=== PATIENT | female | born 1960 | race Caucasian/White ===

== ENCOUNTER 2020-03-20 12:59 | Outpatient (CLI) | payer OTHER ==
--- NOTE | 2020-03-20 13:53 | MRI ---
EXAM: MRI Lumbar Spine WO Con PROVIDED CLINICAL HISTORY: Lumbar radiculopathy COMPARISON: 11/09/2012 FINDINGS: 5 lumbar vertebral bodies are assumed. Lumbar alignment appears normal. Vertebral body heights appear preserved. No focal concerning regional marrow signal abnormality is evident. The conus medullaris is normal in signal and terminates at an appropriate level. L1-L2: No significant central canal or foraminal narrowing apparent. L2-L3: No significant central canal or foraminal narrowing apparent. L3-L4: Bilateral facet arthritis. No significant central canal or foraminal narrowing apparent. L4-L5: Disc desiccation and loss of disc space height with mild broad disc bulge. Bilateral facet arthritis. Mild central canal stenosis. Moderate left subarticular narrowing. Moderate bilateral foraminal narrowing. L5-S1: Broad-based disc bulge and bilateral facet arthritis. Mild bilateral foraminal narrowing. No signific ant central canal stenosis apparent. IMPRESSION: Lumbar disc and facet degenerative changes as described above, appearing similar to prior.
== END 2020-03-20 13:00 | disposition home or self-care (01) ==
LOC: TBSIIMAG 12:59
PROVIDERS: ATTEND Emergency Medicine Sports Medicine
DX: M47.26 Other spondylosis with radiculopathy, lumbar region (principal); M16.12 Unilateral primary osteoarthritis, left hip; M25.552 Pain in left hip; M51.16 Intervertebral disc disorders with radiculopathy, lumbar region; M47.817 Spondylosis without myelopathy or radiculopathy, lumbosacral region
CPT/HCPCS: 72148

== ENCOUNTER 2020-04-24 06:06 | Day surgery (SDC) | payer OTHER ==
[2020-04-23 10:42] VITALS: BMI 40.3
[2020-04-24] MEDS ORDERED: Ketamine 50 MG/ML (10ML VIAL) ONE (06:50)
[2020-04-24] MEDS ORDERED: Midazolam HCl 2 mg/2 ml Vial ONE (07:01)
[2020-04-24] MEDS ORDERED: Fentanyl 100 MCG/2 ML VIAL ONE ×2 (07:11→09:18)
[2020-04-24] MEDS ORDERED: SUGAMMADEX SODIUM 200 MG/2 ML VIAL ONE (08:37)
[2020-04-24] MEDS ORDERED: HYDROmorphone 2 MG/ML VIAL ONE (08:44)
[2020-04-24] MEDS ORDERED: Rocuronium Bromide 10 MG/ML (10ML VIAL) ONE (09:00)
[2020-04-24] MEDS ORDERED: Ondansetron PF 4 MG/2 ML Vial ONE (09:00)
[2020-04-24] MEDS ORDERED: Ketorolac Tromethamine 30 MG/ML VIAL ONE (09:00)
[2020-04-24] MEDS ORDERED: PROPOFOL 200 MG/20 ML VIAL ONE (09:00)
[2020-04-24] MEDS ORDERED: PHENYLEPHRINE-NS 100 MCG/ML 10 ML SYRINGE ONE (09:00)
[2020-04-24] MEDS ORDERED: Lidocaine 1% PF 5 ML VIAL ONE (09:00)
[2020-04-24] MEDS ORDERED: Dexamethasone 20 MG/5 ML VIAL ONE (09:00)
[2020-04-24] MEDS ORDERED: Promethazine HCl 25 MG/ML VIAL ONE (09:36)
--- NOTE | 2020-04-24 09:46 | OP ---
DATE OF PROCEDURE: 04/24/2020 GRIPS: Lynette Nava PA-C. PROCEDURE PERFORMED: Left L4-L5 laminectomy, facetectomy, foraminotomy, and diskectomy; interbody arthrodesis, intervertebral biomechanical device, local morselized autograft, demineralized bone matrix, posterolateral arthrodesis, pedicle screw instrumentation, L4-L5. DESCRIPTION OF PROCEDURE: The patient was brought to the operating room and intubated. She was rolled in a prone position on gel-filled chest rolls. An incision was made exposing L4-L5 and the level was confirmed by x-ray. We identified the previous L4-L5 hemilaminectomy and extended this by performing a complete laminectomy and facetectomy at L4-L5. The neural elements were completely decompressed. The disk was incised and debrided and the bony endplates decorticated for the purpose of arthrodesis. An appropriate-sized intervertebral biomechanical PEEK device was brought into the field. It was filled with demineralized bone matrix, local morselized autograft, and tapped in place securely at L4-L5. Next, pedicle screws were placed at left L4 and left L5 using lateral fluoroscopic guidance and the positioning was confirmed by x-ray. The gabino was secured between the screws, connected by nuts, which were final tightened. The wound was then extensively irrigated and MAC hemostasis was secured. A combination of demineralized bone matrix, local morselized autograft was laid over the lamina and posterolateral surfaces for the purpose of arthrodesis. Vancomycin powder was applied and the wound was then closed in anatomic layers. Job ID: [id number]
[2020-04-24] MEDS ORDERED: HYDROcodone/Acetaminophen 5/325 mg Tablet ONE (13:41)
[2020-04-24] MEDS ORDERED: tiZANidine HCl 4 MG TAB ONE (14:12)
== END 2020-04-24 15:27 | disposition home or self-care (01) ==
LOC: SDC 06:06
PROVIDERS: ATTEND Neurological Surgery
PROC: 0SG00AJ Fusion of Lumbar Vertebral Joint with Interbody Fusion Device, Posterior Approach, Anterior Column, Open Approach (ICD-10-PCS; principal; 2020-04-24)
PROC: 0ST20ZZ Resection of Lumbar Vertebral Disc, Open Approach (ICD-10-PCS; principal; 2020-04-24)
DX: M43.16 Spondylolisthesis, lumbar region (principal); M54.16 Radiculopathy, lumbar region; M48.061 Spinal stenosis, lumbar region without neurogenic claudication; I10 Essential (primary) hypertension; F41.9 Anxiety disorder, unspecified; Z79.899 Other long term (current) drug therapy; Z88.1 Allergy status to other antibiotic agents; Z88.5 Allergy status to narcotic agent
CPT/HCPCS: 76000; C1713; C1768; J0690; J1100; J1170; J1885; J2250; J2405; J2550; J2704; J3010; J3370; J3490

== ENCOUNTER 2020-05-09 08:58 | Outpatient (CLI) | payer OTHER ==
--- NOTE | 2020-05-09 09:20 | RAD ---
Lumbar spine 2 views: 05/09/2020 COMPARISON: 11/09/2012 HISTORY: Spondylolisthesis, prior lumbar spine surgery, persistent left leg pain FINDINGS: 5 lumbar type vertebral bodies are present. The lateral examination demonstrates anterolist hesis at the L4-5 level measuring 9 mm, progressed when compared to the 11/09/2012 study. There is an intervertebral disc device at L4-5. Left L4 and L5 pedicle screws have been placed with a vertical ly oriented interlocking gabino. No evidence for hardware failure. There is disc space narrowing with lateral osteophyte formation at L4-5. Disc spacing at the L5-S1 le dung noted. No acute osseous abnormality. IMPRESSION: Postoperative and degenerative change of the lumbar spine as above.
== END 2020-05-09 08:59 | disposition home or self-care (01) ==
LOC: TBSIIMAG 08:58
PROVIDERS: ATTEND Neurological Surgery
DX: M43.16 Spondylolisthesis, lumbar region (principal); M47.816 Spondylosis without myelopathy or radiculopathy, lumbar region; Z98.890 Other specified postprocedural states
CPT/HCPCS: 72100

== ENCOUNTER 2021-11-06 13:36 | Outpatient (CLI) | payer OTHER ==
[2021-11-06 16:30] LABS: #Basophils 0.1 10x3/uL (0.0-0.2); #Eosinphils 0.3 10x3/uL (0.0-0.5); #Monocytes 0.6 10x3/uL (0.0-1.1); #Neutrophils 6.4 10x3/uL (1.5-8.4); %Basophils 0.6 % (0.0-2.0); %Eosinophils 2.6 % (0.0-6.0); %Lymphocytes 22.2 % (18.0-47.0); %Monocytes 6.2 % (0.0-10.0); %Neutrophils 67.9 % (40.0-75.0); Hemoglobin 12.2 g/dL (12.0-15.5); Mean Corpuscular HGB CONC 31.8 g/dL (32.0-36.0); Mean Corpuscular Hemoglobin 27.4 pg (27.0-33.0); Mean Corpuscular Volume 86.3 fl (81.6-98.3); Mean Platelet Volume 10.8 fl (7.4-10.4); Platelet Count 277 10x3/uL (150-450); RBC Distribution Width 15.6 % (11.5-14.5); Red Blood Cell (RBC) Count 4.45 10x6/uL (3.90-5.03); White Blood Cell (WBC) Count 9.5 10x3/uL (3.5-10.5)
[2021-11-06 17:08] LABS: Anion Gap 17 mmol/L (10-20); BUN (Urea Nitrogen) 30 mg/dL (9.8-20.1); Calc. Creatinine Clearance 0 mL/min (70-130); Calcium 10.4 mg/dL (7.8-10.44); Carbon Dioxide 27 mmol/L (23-31); Chloride 101 mmol/L (98-107); Estimated GFR 63; Glucose 117 mg/dL (80-115); Potassium 3.9 mmol/L (3.5-5.1); Sodium 141 mmol/L (136-145)
== END 2021-11-06 13:37 | disposition home or self-care (01) ==
LOC: LABBT 13:36
PROVIDERS: ATTEND Orthopaedic Surgery Hand Surgery
DX: Z01.818 Encounter for other preprocedural examination (principal); Z20.822 Contact with and (suspected) exposure to COVID-19
CPT/HCPCS: 80048; 85025; 87811; 93005; 93010

== ENCOUNTER 2021-11-11 05:36 | Day surgery (SDC) | payer OTHER ==
[2021-11-07 12:37] VITALS: BMI 38.4
[2021-11-11] MEDS ORDERED: Bacitracin Zinc Ointment 30 gm TUBE ONE (06:11)
[2021-11-11] MEDS ORDERED: Bupivacaine PF 0.5% 30 ML VIAL ONE (06:11)
[2021-11-11] MEDS ORDERED: Betamet Acet/Betamet Na Ph 30 MG/5 ML VIAL ONE (06:11)
[2021-11-11] MEDS ORDERED: Neomycin-Polymyxin 1 ML AMP ONE (06:11)
[2021-11-11] MEDS ORDERED: fentaNYL Citrate/PF 100 MCG/2 ML SYRINGE ONE ×2 (07:01→11:16)
[2021-11-11] MEDS ORDERED: Sodium Chloride 0.9% 100 ML ONE (07:04)
[2021-11-11] MEDS ORDERED: CEFAZOLIN 2 GM VIAL ONE (07:04)
[2021-11-11] MEDS ORDERED: ePHEDrine 50 MG/ML VIAL ONE (07:24)
[2021-11-11] MEDS ORDERED: Ketorolac Tromethamine 30 MG/ML VIAL ONE (07:24)
[2021-11-11] MEDS ORDERED: Ondansetron PF 4 MG/2 ML Vial ONE ×2 (07:24→11:06)
[2021-11-11] MEDS ORDERED: PROPOFOL 200 MG/20 ML VIAL ONE (07:24)
[2021-11-11] MEDS ORDERED: Promethazine HCl 25 MG/ML VIAL ONE (11:08)
[2021-11-11] MEDS ORDERED: Scopolamine 1.5 mg/72 hour Patch ONE (11:14)
[2021-11-11] MEDS ORDERED: Metoclopramide HCl 10 MG/2 ML VIAL ONE (11:19)
== END 2021-11-11 13:50 | disposition home or self-care (01) ==
LOC: SDC 05:36
PROVIDERS: ATTEND Orthopaedic Surgery Hand Surgery
PROC: 0RRX0JZ Replacement of Left Finger Phalangeal Joint with Synthetic Substitute, Open Approach (ICD-10-PCS; principal; 2021-11-11)
PROC: 0LN80ZZ Release Left Hand Tendon, Open Approach (ICD-10-PCS; principal; 2021-11-11)
DX: M15.2 Bouchard's nodes (with arthropathy) (principal); M65.332 Trigger finger, left middle finger; M65.342 Trigger finger, left ring finger; M35.1 Other overlap syndromes; M65.321 Trigger finger, right index finger; M25.839 Other specified joint disorders, unspecified wrist; I10 Essential (primary) hypertension; J45.909 Unspecified asthma, uncomplicated; E11.9 Type 2 diabetes mellitus without complications; G89.29 Other chronic pain; M25.561 Pain in right knee; M25.562 Pain in left knee; Z86.16 Personal history of COVID-19; Z79.84 Long term (current) use of oral hypoglycemic drugs; Z79.899 Other long term (current) drug therapy; Z88.1 Allergy status to other antibiotic agents; Z88.5 Allergy status to narcotic agent; Z96.652 Presence of left artificial knee joint; Z98.1 Arthrodesis status
CPT/HCPCS: 36416; 76000; C1776; C1894; J0690; J0702; J1885; J2405; J2550; J2704; J2765; J3490; S0020

== ENCOUNTER 2021-11-24 14:30 | Day surgery (SDC) | payer OTHER ==
[2021-11-24] MEDS ORDERED: Neomycin-Polymyxin 1 ML AMP ONE (15:59)
[2021-11-24] MEDS ORDERED: Bupivacaine PF 0.5% 30 ML VIAL ONE (15:59)
[2021-11-24] MEDS ORDERED: Bacitracin Zinc Ointment 30 gm TUBE ONE (15:59)
[2021-11-24] MEDS ORDERED: Betamet Acet/Betamet Na Ph 30 MG/5 ML VIAL ONE (15:59)
[2021-11-24] MEDS ORDERED: fentaNYL Citrate/PF 100 MCG/2 ML SYRINGE ONE (16:07)
[2021-11-24] MEDS ORDERED: Levofloxacin 500 mg/D5W 100 ml Premix Bag ONE (16:14)
[2021-11-24] MEDS ORDERED: Clindamycin/D5W 900 mg/50 ml Premix Bag ONE (17:21)
[2021-11-24] MEDS ORDERED: ePHEDrine 50 MG/ML VIAL ONE (17:25)
[2021-11-24] MEDS ORDERED: Ondansetron PF 4 MG/2 ML Vial ONE (17:25)
[2021-11-24] MEDS ORDERED: PROPOFOL 200 MG/20 ML VIAL ONE (17:25)
[2021-11-24] MEDS ORDERED: Lidocaine 1% MPF 2 ML VIAL ONE (17:25)
[2021-11-24] MEDS ORDERED: Dexamethasone 20 MG/5 ML VIAL ONE (17:25)
[2021-11-24] MEDS ORDERED: Glycopyrrolate 0.2 MG/ML 5 ML SYRINGE ONE (17:25)
[2021-11-24] MEDS ORDERED: Ketorolac Tromethamine 30 MG/ML VIAL ONE (18:37)
== END 2021-11-24 19:40 | disposition home or self-care (01) ==
LOC: SDC 14:30
PROVIDERS: ATTEND Orthopaedic Surgery Hand Surgery
PROC: 0LB80ZZ Excision of Left Hand Tendon, Open Approach (ICD-10-PCS; principal; 2021-11-24)
DX: M65.842 Other synovitis and tenosynovitis, left hand (principal); Z88.1 Allergy status to other antibiotic agents; Z88.5 Allergy status to narcotic agent; Z98.890 Other specified postprocedural states
CPT/HCPCS: 88304; J0702; J1100; J1885; J1956; J2405; J2704; J3490; S0020

== ENCOUNTER 2022-02-24 10:11 | Day surgery (SDC) | payer OTHER ==
[2022-02-23 09:24] VITALS: BMI 40.3
[2022-02-24] MEDS ORDERED: Bupivacaine PF 0.5% 30 ML VIAL ONE (11:16)
[2022-02-24] MEDS ORDERED: Neomycin-Polymyxin 1 ML AMP ONE (11:16)
[2022-02-24] MEDS ORDERED: Bacitracin Zinc Ointment 30 gm TUBE ONE (11:16)
[2022-02-24] MEDS ORDERED: Scopolamine 1.5 mg/72 hour Patch ONE (11:36)
[2022-02-24] MEDS ORDERED: Sodium Chloride 0.9% 100 ML ONE (12:00)
[2022-02-24] MEDS ORDERED: CEFAZOLIN 2 GM VIAL ONE (12:00)
[2022-02-24] MEDS ORDERED: fentaNYL PF 100 MCG/2 ML SYRINGE ONE (12:02)
[2022-02-24] MEDS ORDERED: ePHEDrine 50 MG/ML VIAL ONE (12:17)
[2022-02-24] MEDS ORDERED: Ondansetron PF 4 MG/2 ML Vial ONE (12:17)
[2022-02-24] MEDS ORDERED: Dexamethasone 20 MG/5 ML VIAL ONE (12:17)
[2022-02-24] MEDS ORDERED: PROPOFOL 200 MG/20 ML VIAL ONE (12:17)
[2022-02-24] MEDS ORDERED: FENTANYL 50 MCG/ML 1 ML VIAL ONE ×4 (15:11→15:53)
[2022-02-24] MEDS ORDERED: Ketorolac Tromethamine 30 MG/ML VIAL ONE (15:30)
[2022-02-24] MEDS ORDERED: HYDROmorphone 0.5 MG/0.5 ML SYRINGE ONE ×3 (16:03→16:22)
[2022-02-24] MEDS ORDERED: Promethazine 25 MG TAB ONE (17:11)
== END 2022-02-24 17:25 | disposition home or self-care (01) ==
LOC: SDC 10:11
PROVIDERS: ATTEND Orthopaedic Surgery Hand Surgery
DX: M25.342 Other instability, left hand (principal); M24.642 Ankylosis, left hand; T84.098A Other mechanical complication of other internal joint prosthesis, initial encounter; M15.2 Bouchard's nodes (with arthropathy); M65.332 Trigger finger, left middle finger; M65.321 Trigger finger, right index finger; M25.839 Other specified joint disorders, unspecified wrist; I10 Essential (primary) hypertension; J45.909 Unspecified asthma, uncomplicated; G89.29 Other chronic pain; M25.561 Pain in right knee; M25.562 Pain in left knee; M25.541 Pain in joints of right hand; M25.542 Pain in joints of left hand; E11.9 Type 2 diabetes mellitus without complications; Z86.16 Personal history of COVID-19; Z79.84 Long term (current) use of oral hypoglycemic drugs; Z79.899 Other long term (current) drug therapy; Z88.1 Allergy status to other antibiotic agents; Z88.5 Allergy status to narcotic agent; Z96.652 Presence of left artificial knee joint; Z98.1 Arthrodesis status; Y79.3 Surgical instruments, materials and orthopedic devices (including sutures) associated with adverse incidents
CPT/HCPCS: C1776; C1894; J1170; J1885; J3010; J3490; Q0169; S0020

== ENCOUNTER 2022-10-13 14:35 | Emergency (ER) | payer OTHER ==
[2022-10-13] MEDS ORDERED: Orphenadrine Citrate 60 MG/2 ML VIAL ONE ×2 (15:56→16:32)
[2022-10-13] MEDS ORDERED: Ketorolac Tromethamine 30 MG/ML VIAL ONE ×2 (15:57→16:32)
== END 2022-10-13 17:26 | disposition home or self-care (01) ==
LOC: ERS 14:35
DX: S39.012A Strain of muscle, fascia and tendon of lower back, initial encounter (principal); S16.1XXA Strain of muscle, fascia and tendon at neck level, initial encounter; M25.512 Pain in left shoulder; M25.511 Pain in right shoulder; E11.9 Type 2 diabetes mellitus without complications; I10 Essential (primary) hypertension; F17.200 Nicotine dependence, unspecified, uncomplicated; Z79.84 Long term (current) use of oral hypoglycemic drugs; Z79.899 Other long term (current) drug therapy; V49.40XA Driver injured in collision with unspecified motor vehicles in traffic accident, initial encounter
CPT/HCPCS: 72125; 72128; 72131; 96372; J1885; J2360

== ENCOUNTER 2023-08-11 13:31 | Outpatient (CLI) | payer MEDICARE ==
[2023-08-11 15:27] LABS: #Basophils 0.04 10x3/uL (0.0-0.2); #Eosinphils 0.14 10x3/uL (0.0-0.5); #Monocytes 0.62 10x3/uL (0.0-1.1); #Neutrophils 7.15 10x3/uL (1.5-8.4); %Basophils 0.4 % (0.0-2.0); %Eosinophils 1.4 % (0.0-6.0); %Lymphocytes 19.6 % (18.0-47.0); %Monocytes 6.2 % (0.0-10.0); Hematocrit 38.2 % (34.9-44.5); Hemoglobin 12.4 g/dL (12.0-15.5); Mean Corpuscular HGB CONC 32.5 g/dL (32.0-36.0); Mean Corpuscular Hemoglobin 27.6 pg (27.0-33.0); Mean Corpuscular Volume 84.9 fl (81.6-98.3); Mean Platelet Volume 10.7 fl (7.4-10.4); Platelet Count 275 10x3/uL (150-450); White Blood Cell (WBC) Count 9.9 10x3/uL (3.5-10.5)
== END 2023-08-11 13:32 | disposition home or self-care (01) ==
LOC: LABBT 13:31
PROVIDERS: ATTEND Orthopaedic Surgery
DX: Z01.812 Encounter for preprocedural laboratory examination (principal); S46.011A Strain of muscle(s) and tendon(s) of the rotator cuff of right shoulder, initial encounter; M75.81 Other shoulder lesions, right shoulder
CPT/HCPCS: 85025

== ENCOUNTER 2023-08-19 05:19 | Day surgery (SDC) | payer MEDICARE ==
[2023-08-11 14:16] VITALS: BMI 37.8
[2023-08-19] MEDS ORDERED: Bupivacaine 0.25% HCL 30 ML VIAL ONE (06:25)
[2023-08-19] MEDS ORDERED: EPINEPHrine 1 MG/ML VIAL ONE (06:25)
[2023-08-19] MEDS ORDERED: Midazolam HCl 2 mg/2 ml Vial ONE (06:42)
[2023-08-19] MEDS ORDERED: Dexmedetomidine 200 MCG/2 ML VIAL ONE (06:42)
[2023-08-19] MEDS ORDERED: fentaNYL PF 100 MCG/2 ML SYRINGE ONE (06:43)
[2023-08-19] MEDS ORDERED: Sodium Chloride 0.9% 100 ML ONE (06:55)
[2023-08-19] MEDS ORDERED: CEFAZOLIN 2 GM VIAL ONE (06:55)
[2023-08-19] MEDS ORDERED: PROPOFOL 40 ML ONE (07:17)
[2023-08-19] MEDS ORDERED: Lidocaine 1% PF 5 ML VIAL ONE (07:25)
[2023-08-19] MEDS ORDERED: Dexamethasone 20 MG/5 ML VIAL ONE (07:25)
[2023-08-19] MEDS ORDERED: Ketorolac Tromethamine 30 MG (1 mL) VIAL ONE (07:25)
[2023-08-19] MEDS ORDERED: Rocuronium Bromide 10 MG/ML (10ML VIAL) ONE (07:25)
[2023-08-19] MEDS ORDERED: ePHEDrine Sulfate 50 MG/10 ML VIAL ONE (07:34)
[2023-08-19] MEDS ORDERED: Metoclopramide HCl 10 MG (2 mL) VIAL ONE (07:34)
[2023-08-19] MEDS ORDERED: Glycopyrrolate 0.2 MG/ML 5 ML SYRINGE ONE (07:46)
[2023-08-19] MEDS ORDERED: Ropivacaine 0.5% HCl/PF (150 MG/30 ML VIAL) ONE (07:48)
[2023-08-19] MEDS ORDERED: Ropivacaine 0.2% HCl/PF 20 ML ONE (07:48)
[2023-08-19] MEDS ORDERED: Zolpidem Tartrate 5 MG TAB PO PRN (08:00)
[2023-08-19] MEDS ORDERED: Ropivacaine 0.2% 550 ML 550 ML NERVE BLCK SCH (08:00)
[2023-08-19] MEDS ORDERED: Promethazine HCl 25 MG/ML VIAL IM PRN (08:00)
[2023-08-19] MEDS ORDERED: Ondansetron PF 4 MG/2 ML Vial IVP PRN (08:00)
[2023-08-19] MEDS ORDERED: SUGAMMADEX SODIUM 200 MG/2 ML VIAL ONE (08:36)
[2023-08-19] MEDS ORDERED: Ondansetron PF 4 MG/2 ML Vial ONE (08:38)
[2023-08-19] MEDS ORDERED: fentaNYL 50 mcg/mL 1 mL Vial ONE (10:26)
== END 2023-08-19 11:45 | disposition home or self-care (01) ==
LOC: SDC 05:19
PROVIDERS: ATTEND Orthopaedic Surgery
PROC: 0LS34ZZ Reposition Right Upper Arm Tendon, Percutaneous Endoscopic Approach (ICD-10-PCS; principal; 2023-08-19)
DX: S46.011A Strain of muscle(s) and tendon(s) of the rotator cuff of right shoulder, initial encounter (principal); M67.921 Unspecified disorder of synovium and tendon, right upper arm; I10 Essential (primary) hypertension; J45.909 Unspecified asthma, uncomplicated; M19.90 Unspecified osteoarthritis, unspecified site; D64.9 Anemia, unspecified; E11.9 Type 2 diabetes mellitus without complications; M75.21 Bicipital tendinitis, right shoulder; F41.9 Anxiety disorder, unspecified; Z98.890 Other specified postprocedural states; Z88.5 Allergy status to narcotic agent; Z88.8 Allergy status to other drugs, medicaments and biological substances; Z88.6 Allergy status to analgesic agent; Z79.4 Long term (current) use of insulin; Z79.899 Other long term (current) drug therapy
CPT/HCPCS: 29827; 64415; 82962; A4306; J0171; J0665; J2250; J2405; J2704; J2765; J2795 ×3; J3010; J3490; 36416; C1713; J1100; J1885

== ENCOUNTER 2024-01-18 14:22 | Outpatient (CLI) | payer MEDICARE ==
[2024-01-18 15:58] LABS: #Basophils 0.04 10x3/uL (0.0-0.2); %Basophils 0.5 % (0.0-1.0); %Eosinophils 2.2 % (0.0-10.0); %Lymphocytes 21.5 % (21.0-51.0); %Neutrophils 68.6 % (42.0-75.0); Hematocrit 41.3 % (36.0-47.0); Hemoglobin 13.3 g/dL (12.0-16.0); Mean Corpuscular HGB CONC 32.2 g/dL (32.0-36.0); Mean Corpuscular Hemoglobin 27.1 pg (27.0-31.0); Mean Corpuscular Volume 84.1 fL (78.0-98.0); Mean Platelet Volume 10.3 fL (7.4-10.4); Platelet Count 254 10x3/uL (130-400); RBC Distribution Width 16.1 % (11.5-14.5); Red Blood Cell (RBC) Count 4.91 mill/uL (4.20-5.40)
[2024-01-18 16:11] LABS: INR-International Normal Ratio 1.1; PTT 36.4 sec (22.9-36.1); Prothrombin Time 13.9 sec (12.0-14.7)
[2024-01-18 16:18] LABS: Anion Gap 14 mmol/L (10-20); BUN (Urea Nitrogen) 21 mg/dL (9.8-20.1); Calc. Creatinine Clearance 0 mL/min (70-130); Calcium 9.7 mg/dL (7.8-10.44); Carbon Dioxide 26 mmol/L (23-31); Chloride 106 mmol/L (98-107); Estimated GFR 72; Glucose 92 mg/dL (80-115); Potassium 3.3 mmol/L (3.5-5.1); Sodium 143 mmol/L (136-145)
== END 2024-01-18 14:23 | disposition home or self-care (01) ==
LOC: LABBT 14:22
PROVIDERS: ATTEND Orthopaedic Surgery
DX: Z01.818 Encounter for other preprocedural examination (principal); M17.11 Unilateral primary osteoarthritis, right knee; Z98.890 Other specified postprocedural states
CPT/HCPCS: 80048; 85025; 87081; 93005; 93010

== ENCOUNTER 2024-01-21 14:14 | Outpatient (CLI) | payer MEDICARE | END 2024-01-21 14:15 | disposition home or self-care (01) | LOC: CT 14:14 | PROVIDERS: ATTEND Orthopaedic Surgery | DX: M17.11 Unilateral primary osteoarthritis, right knee (principal) ==

== ENCOUNTER 2024-01-25 08:41 | Inpatient (IN) | payer MEDICARE ==
[2024-01-25] MEDS ORDERED: Sodium Chloride 0.9% 100 ML ONE (10:27)
[2024-01-25] MEDS ORDERED: Tranexamic Acid 1,000 MG/10 ML VIAL ONE (10:27)
[2024-01-25] MEDS ORDERED: Vancomycin (BATCH) 1.5 GM/300 ML BAG ONE (10:27)
[2024-01-25] MEDS ORDERED: Midazolam HCl 2 mg/2 ml Vial ONE (10:29)
[2024-01-25] MEDS ORDERED: fentaNYL 50 mcg/mL 1 mL Vial ONE ×4 (10:29→17:47)
[2024-01-25] MEDS ORDERED: Bupivacaine PF 0.5% 30 ML VIAL ONE (10:29)
[2024-01-25] MEDS ORDERED: Promethazine HCl 25 MG/ML VIAL IM PRN ×2 (12:00→17:00)
[2024-01-25] MEDS ORDERED: traMADol HCl 50 MG TAB PO PRN ×2 (12:00)
[2024-01-25] MEDS ORDERED: HYDROcodone/Acetaminophen 10/325 mg Tablet PO PRN ×2 (12:00)
[2024-01-25] MEDS ORDERED: Ropivacaine 0.2% 550 ML 550 ML NERVE BLCK SCH (12:00)
[2024-01-25] MEDS ORDERED: Zolpidem Tartrate 5 MG TAB PO PRN (12:00)
[2024-01-25] MEDS ORDERED: fentaNYL 50 mcg/mL 1 mL Vial SLOW IVP PRN (12:00)
[2024-01-25] MEDS ORDERED: Bupivacaine 0.25% HCL 30 ML VIAL ONE (12:10)
[2024-01-25] MEDS ORDERED: EPINEPHrine 1 MG/ML VIAL ONE (12:10)
[2024-01-25] MEDS ORDERED: Lidocaine 1% PF 5 ML VIAL ONE (12:15)
[2024-01-25] MEDS ORDERED: PROPOFOL 20 ML ONE (12:15)
[2024-01-25] MEDS ORDERED: Ondansetron PF 4 MG/2 ML Vial ONE (12:15)
[2024-01-25] MEDS ORDERED: fentaNYL PF 100 MCG/2 ML SYRINGE ONE (12:15)
[2024-01-25] MEDS ORDERED: CEFAZOLIN 2 GM VIAL ONE (12:23)
[2024-01-25] MEDS ORDERED: ePHEDrine Sulfate 50 MG/10 ML VIAL ONE (12:56)
[2024-01-25] MEDS ORDERED: HYDROmorphone 0.5 MG/0.5 ML SYRINGE ONE ×4 (15:27→17:26)
[2024-01-25] MEDS ORDERED: Ketamine In 0.9 % NaCl 50 MG/5 ML SYRINGE ONE (15:46)
[2024-01-25] MEDS ORDERED: diphenhydrAMINE 25 MG CAP PO PRN ×2 (15:59→17:00)
[2024-01-25] MEDS ORDERED: Acetaminophen 325 MG TAB PO PRN (15:59)
[2024-01-25] MEDS ORDERED: Ondansetron PF 4 MG/2 ML Vial IVP PRN (17:00)
[2024-01-25] MEDS ORDERED: HYDROmorphone/PF 10 MG in Sodium Chloride 0.9% 99 ML IVPB PRN (17:00)
[2024-01-25] MEDS ORDERED: Naloxone HCl 0.4 mg/ml Vial IV PRN (17:00)
[2024-01-25] MEDS ORDERED: diphenhydrAMINE 50 MG/ML VIAL IM/IV PRN (17:00)
[2024-01-25 19:50] VITALS: BMI 37.2
[2024-01-25] MEDS: tiZANidine HCl 4 MG TAB PO PRN (19:51)
[2024-01-25] MEDS: Ondansetron PF 4 MG/2 ML Vial IVP PRN (19:51)
[2024-01-25] MEDS: Ketorolac Tromethamine 30 MG (1 mL) VIAL IVP SCH (19:51)
[2024-01-25 21:03] LABS: #Basophils 0.03 10x3/uL (0.0-0.2); #Eosinophils Less than 0.03 10x3/uL (0.0-0.7); %Basophils 0.2 % (0.0-1.0); %Eosinophils 0.1 % (0.0-10.0); %Lymphocytes 6.1 % (21.0-51.0); %Monocytes 4.3 % (0.0-10.0); %Neutrophils 88.4 % (42.0-75.0); Hematocrit 34.3 % (36.0-47.0); Hemoglobin 10.9 g/dL (12.0-16.0); Mean Corpuscular HGB CONC 31.8 g/dL (32.0-36.0); Mean Corpuscular Volume 84.9 fL (78.0-98.0); Mean Platelet Volume 10.7 fL (7.4-10.4); Platelet Count 178 10x3/uL (130-400); RBC Distribution Width 16.1 % (11.5-14.5); Red Blood Cell (RBC) Count 4.04 mill/uL (4.20-5.40)
[2024-01-25 21:25] LABS: ALT (SGPT) 34 U/L (8-55); AST (SGOT) 32 U/L (5-34); Albumin 3.6 g/dL (3.4-4.8); Alkaline Phosphatase 82 U/L (40-110); Anion Gap 11 mmol/L (10-20); BUN (Urea Nitrogen) 14 mg/dL (9.8-20.1); Bilirubin, Total 0.6 mg/dL (0.2-1.2); Calc. Creatinine Clearance 146 mL/min (70-130); Calcium 8.8 mg/dL (7.8-10.44); Carbon Dioxide 22 mmol/L (23-31); Chloride 109 mmol/L (98-107); Estimated GFR 99; Globulin 2.9 g/dL (2.4-3.5); Glucose 146 mg/dL (80-115); Potassium 3.6 mmol/L (3.5-5.1); Protein, Total 6.5 g/dL (5.8-8.1); Sodium 138 mmol/L (136-145)
[2024-01-25] MEDS: FLU (Fluad Triv) TS24-25 (65UP)/MF59C/PF 45 MCG/0.5 ML Syringe IM ONE (21:47)
[2024-01-25] MEDS: Hydrochlorothiazide 25 MG TAB PO SCH (21:49)
[2024-01-25] MEDS: Losartan 25 MG TAB PO SCH (21:49)
[2024-01-25] MEDS: Ferrous Gluconate 324 MG TAB PO SCH (21:49)
[2024-01-25] MEDS: Gabapentin 400 MG CAP PO SCH (21:50)
[2024-01-25] MEDS: Insulin Glargine 30 UNITS/0.3 ML VIAL SC SCH (21:51)
[2024-01-25] MEDS: Sulfameth/Trimethoprim DS 800-160mg TAB PO SCH (21:51)
[2024-01-25] MEDS: Aspirin 81 mg Enteric Coated Tablet PO SCH (21:51)
[2024-01-25] MEDS: Doxycycline 100 MG CAP PO SCH (21:51)
[2024-01-25] MEDS: Senokot S 8.6-50 MG TAB PO SCH (21:51)
[2024-01-25] MEDS: CEFAZOLIN 2 GM in Sodium Chloride 0.9% 100 ML IVPB SCH (21:53)
[2024-01-26] MEDS: Sodium Chloride 0.9% 1,000 ML IV SCH (03:30)
[2024-01-26 05:25] LABS: Hematocrit 31.4 % (36.0-47.0); Hemoglobin 9.9 g/dL (12.0-16.0); Mean Corpuscular HGB CONC 31.5 g/dL (32.0-36.0); Mean Corpuscular Volume 85.6 fL (78.0-98.0); Mean Platelet Volume 10.7 fL (7.4-10.4); Platelet Count 185 10x3/uL (130-400); RBC Distribution Width 16.1 % (11.5-14.5); Red Blood Cell (RBC) Count 3.67 mill/uL (4.20-5.40)
[2024-01-26 05:57] LABS: Anion Gap 13 mmol/L (10-20); BUN (Urea Nitrogen) 15 mg/dL (9.8-20.1); Calc. Creatinine Clearance 130 mL/min (70-130); Calcium 8.5 mg/dL (7.8-10.44); Carbon Dioxide 23 mmol/L (23-31); Chloride 106 mmol/L (98-107); Estimated GFR 97; Glucose 139 mg/dL (80-115); Potassium 3.8 mmol/L (3.5-5.1); Sodium 138 mmol/L (136-145)
[2024-01-26] MEDS ORDERED: Non-Formulary Item 1 EACH (Multivit-Min/Iron/Folic/Lutein [Centrum Silver Women] 1 TABLET PO SCH (09:00)
[2024-01-26] MEDS ORDERED: Furosemide 40 MG TAB PO SCH (09:00)
[2024-01-26] MEDS ORDERED: Amlodipine 5 MG TAB PO SCH (09:00)
[2024-01-26] MEDS ORDERED: Potassium Citrate [Potassium] 99 MG Capsule PO SCH (09:00)
[2024-01-26] MEDS ORDERED: Non-Formulary Item 1 EACH (Irbesartan/Hydrochlorothiazide [Irbesartan-Hctz 300-12.5 Mg Tb PO SCH (09:00)
[2024-01-26] MEDS ORDERED: Hydrochlorothiazide 25 MG TAB PO SCH (09:00)
[2024-01-26] MEDS ORDERED: Losartan 25 MG TAB PO SCH (09:00)
[2024-01-26] MEDS: Amlodipine 5 MG TAB PO SCH (09:04)
[2024-01-26] MEDS: Citalopram 10 MG TAB PO SCH (09:04)
[2024-01-26] MEDS: Losartan 25 MG TAB PO SCH (09:04)
[2024-01-26] MEDS: Multivitamin W/ Minerals 1 TAB PO SCH (09:04)
[2024-01-26] MEDS: Empagliflozin 25 MG TAB PO SCH (09:04)
[2024-01-26] MEDS: Rosuvastatin 10 MG TAB PO SCH (09:05)
[2024-01-27 08:14] LABS: Hematocrit 29.9 % (36.0-47.0); Hemoglobin 9.6 g/dL (12.0-16.0); Mean Corpuscular HGB CONC 32.1 g/dL (32.0-36.0); Mean Corpuscular Hemoglobin 26.8 pg (27.0-31.0); Mean Corpuscular Volume 83.5 fL (78.0-98.0); Mean Platelet Volume 10.2 fL (7.4-10.4); Platelet Count 157 10x3/uL (130-400); RBC Distribution Width 16.6 % (11.5-14.5); Red Blood Cell (RBC) Count 3.58 mill/uL (4.20-5.40)
[2024-01-27] MEDS: Furosemide 40 MG TAB PO SCH (08:22)
[2024-01-27] MEDS: Losartan 25 MG TAB PO SCH (08:25)
[2024-01-27] MEDS: Amlodipine 5 MG TAB PO SCH (08:25)
[2024-01-27] MEDS ORDERED: Furosemide 20 MG TAB PO SCH (09:00)
[2024-01-27] MEDS ORDERED: fentaNYL 50 mcg/mL 1 mL Vial SLOW IVP PRN (12:40)
[2024-01-27] MEDS ORDERED: HYDROcodone/Acetaminophen 10/325 mg Tablet PO PRN (12:40)
[2024-01-27] MEDS: HYDROcodone/Acetaminophen 10/325 mg Tablet PO PRN (13:34)
[2024-01-27] MEDS: hydrALAZINE 25 MG TAB PO PRN (20:10)
[2024-01-28 05:42] LABS: Hematocrit 27.3 % (36.0-47.0); Hemoglobin 8.6 g/dL (12.0-16.0); Mean Corpuscular HGB CONC 31.5 g/dL (32.0-36.0); Mean Corpuscular Volume 85.6 fL (78.0-98.0); Mean Platelet Volume 10.5 fL (7.4-10.4); Platelet Count 167 10x3/uL (130-400); RBC Distribution Width 16.7 % (11.5-14.5); Red Blood Cell (RBC) Count 3.19 mill/uL (4.20-5.40)
[2024-01-28 07:48] VITALS: BP 125/73; TEMP 97.5
[2024-01-28] MEDS: Losartan 25 MG TAB PO SCH (08:47)
== END 2024-01-28 13:52 | disposition home health service (06) | DRG 470 ==
LOC: SDC 08:41 → SURG B 18:41 → OBSVTOIN 01-26 16:52
PROVIDERS: ADMIT Orthopaedic Surgery; ATTEND Orthopaedic Surgery
PROC: 0SRC0J9 Replacement of Right Knee Joint with Synthetic Substitute, Cemented, Open Approach (ICD-10-PCS; principal; 2024-01-25)
DX: M17.11 Unilateral primary osteoarthritis, right knee (principal); I10 Essential (primary) hypertension; E11.9 Type 2 diabetes mellitus without complications; D64.9 Anemia, unspecified; F41.9 Anxiety disorder, unspecified; G89.29 Other chronic pain; E78.5 Hyperlipidemia, unspecified; Z96.652 Presence of left artificial knee joint; Z88.5 Allergy status to narcotic agent; Z88.1 Allergy status to other antibiotic agents; Z88.8 Allergy status to other drugs, medicaments and biological substances; Z90.710 Acquired absence of both cervix and uterus; Z79.4 Long term (current) use of insulin; Z79.82 Long term (current) use of aspirin; Z79.899 Other long term (current) drug therapy
CPT/HCPCS: 36415; 36416; 80048; 80053; 85025; 85027; 96374; 96375; 96376; A4306; C1713; C1776; C1889; G0378; J0171; J0665; J1815; J1885; J2250; J2405; J2704; J2795; J3010; J3370; J3490; J7030

== ENCOUNTER 2024-03-10 19:38 | Observation (INO) | payer MEDICARE ==
[2024-03-10 20:39] LABS: #Basophils 0.04 10x3/uL (0.0-0.2); %Basophils 0.4 % (0.0-1.0); %Eosinophils 3.2 % (0.0-10.0); %Lymphocytes 20.7 % (21.0-51.0); %Monocytes 5.8 % (0.0-10.0); %Neutrophils 69.6 % (42.0-75.0); Hemoglobin 11.1 g/dL (12.0-16.0); Mean Corpuscular HGB CONC 32.6 g/dL (32.0-36.0); Mean Corpuscular Hemoglobin 27.7 pg (27.0-31.0); Mean Corpuscular Volume 84.8 fL (78.0-98.0); Mean Platelet Volume 9.9 fL (7.4-10.4); Platelet Count 282 10x3/uL (130-400); RBC Distribution Width 17.2 % (11.5-14.5); Red Blood Cell (RBC) Count 4.01 mill/uL (4.20-5.40)
[2024-03-10 20:54] LABS: ALT (SGPT) 22 U/L (8-55); AST (SGOT) 26 U/L (5-34); Albumin 4.3 g/dL (3.4-4.8); Alkaline Phosphatase 98 U/L (40-110); Anion Gap 17 mmol/L (10-20); BUN (Urea Nitrogen) 28 mg/dL (9.8-20.1); Bilirubin, Total 0.3 mg/dL (0.2-1.2); Calc. Creatinine Clearance 0 mL/min (70-130); Calcium 10.1 mg/dL (7.8-10.44); Carbon Dioxide 21 mmol/L (23-31); Chloride 103 mmol/L (98-107); Estimated GFR 46; Globulin 3.9 g/dL (2.4-3.5); Glucose 97 mg/dL (80-115); Potassium 4.8 mmol/L (3.5-5.1); Protein, Total 8.2 g/dL (5.8-8.1); Sodium 136 mmol/L (136-145)
[2024-03-10] MEDS ORDERED: Ondansetron PF 4 MG/2 ML Vial IVP PRN (22:30)
[2024-03-10] MEDS ORDERED: Ondansetron ODT 4 MG TAB SL PRN (22:30)
[2024-03-10] MEDS ORDERED: Dextrose 5% in Water 1,000 ML IV PRN (22:35)
[2024-03-10] MEDS ORDERED: Insulin Lispro 100 UNIT/ML 10 ML VIAL SC PRN (22:35)
[2024-03-10] MEDS ORDERED: Dextrose 50% Abboject 50 ML SYRINGE SLOW IVP PRN (22:35)
[2024-03-10] MEDS ORDERED: Glucagon 1 MG/ML KIT IM PRN (22:35)
[2024-03-10] MEDS ORDERED: traMADol HCl 50 MG TAB PO PRN ×2 (22:35)
[2024-03-10] MEDS ORDERED: Acetaminophen 325 MG TAB PO PRN (22:35)
[2024-03-10] MEDS ORDERED: Acetaminophen 650 MG Suppository PR PRN (22:35)
[2024-03-10 23:28] VITALS: BMI 35.6
[2024-03-10] MEDS: Clindamycin/D5W 900 MG in Premix 1 BAG IVPB SCH (23:42)
[2024-03-11] MEDS: Acetaminophen 500 MG TAB PO SCH (01:04)
[2024-03-11] MEDS: Clindamycin/D5W 900 MG in Premix 1 BAG IVPB SCH ×2 (05:19→20:14)
[2024-03-11 06:02] LABS: #Basophils 0.03 10x3/uL (0.0-0.2); %Basophils 0.4 % (0.0-1.0); %Eosinophils 4.1 % (0.0-10.0); %Lymphocytes 28.6 % (21.0-51.0); %Monocytes 9.2 % (0.0-10.0); %Neutrophils 57.4 % (42.0-75.0); Hematocrit 31.7 % (36.0-47.0); Mean Corpuscular HGB CONC 31.5 g/dL (32.0-36.0); Mean Corpuscular Hemoglobin 27.2 pg (27.0-31.0); Mean Corpuscular Volume 86.1 fL (78.0-98.0); Mean Platelet Volume 10.5 fL (7.4-10.4); Platelet Count 235 10x3/uL (130-400); RBC Distribution Width 17.2 % (11.5-14.5); Red Blood Cell (RBC) Count 3.68 mill/uL (4.20-5.40)
[2024-03-11 06:18] LABS: Anion Gap 14 mmol/L (10-20); BUN (Urea Nitrogen) 23 mg/dL (9.8-20.1); Calc. Creatinine Clearance 78 mL/min (70-130); Calcium 9.4 mg/dL (7.8-10.44); Carbon Dioxide 21 mmol/L (23-31); Chloride 106 mmol/L (98-107); Estimated GFR 59; Glucose 101 mg/dL (80-115); Sodium 137 mmol/L (136-145)
[2024-03-11] MEDS: Insulin Glargine 30 UNITS/0.3 ML VIAL SC SCH (09:10)
[2024-03-11] MEDS: Multivitamin W/ Minerals 1 TAB PO SCH (09:10)
[2024-03-11] MEDS: Empagliflozin 25 MG TAB PO SCH (09:10)
[2024-03-11] MEDS: Amlodipine 5 MG TAB PO SCH (09:10)
[2024-03-11] MEDS: Enoxaparin 40 MG (0.4 mL) SYRINGE SC SCH (09:11)
[2024-03-11] MEDS ORDERED: Magnevist 469MG/ML 20 ML VIAL ONE (09:22)
[2024-03-11] MEDS: tiZANidine HCl 4 MG TAB PO SCH (20:12)
[2024-03-11] MEDS: Gabapentin 400 MG CAP PO SCH (20:12)
[2024-03-11 21:32] VITALS: BMI 35.6
[2024-03-12 04:51] LABS: #Basophils Less than 0.03 10x3/uL (0.0-0.2); %Basophils 0.4 % (0.0-1.0); %Eosinophils 5.5 % (0.0-10.0); %Lymphocytes 31.7 % (21.0-51.0); %Neutrophils 53.9 % (42.0-75.0); Hematocrit 34.1 % (36.0-47.0); Hemoglobin 11.1 g/dL (12.0-16.0); Mean Corpuscular HGB CONC 32.6 g/dL (32.0-36.0); Mean Corpuscular Hemoglobin 27.3 pg (27.0-31.0); Mean Corpuscular Volume 83.8 fL (78.0-98.0); Mean Platelet Volume 10.2 fL (7.4-10.4); Platelet Count 231 10x3/uL (130-400); RBC Distribution Width 17.1 % (11.5-14.5); Red Blood Cell (RBC) Count 4.07 mill/uL (4.20-5.40)
[2024-03-12 05:17] LABS: ALT (SGPT) 20 U/L (8-55); AST (SGOT) 23 U/L (5-34); Albumin 3.7 g/dL (3.4-4.8); Alkaline Phosphatase 87 U/L (40-110); Anion Gap 13 mmol/L (10-20); BUN (Urea Nitrogen) 22 mg/dL (9.8-20.1); Bilirubin, Total 0.3 mg/dL (0.2-1.2); Calc. Creatinine Clearance 100 mL/min (70-130); Calcium 9.8 mg/dL (7.8-10.44); Carbon Dioxide 20 mmol/L (23-31); Chloride 108 mmol/L (98-107); Estimated GFR 79; Globulin 3.5 g/dL (2.4-3.5); Glucose 95 mg/dL (80-115); Magnesium 2.1 mg/dL (1.6-2.6); Potassium 4.2 mmol/L (3.5-5.1); Protein, Total 7.2 g/dL (5.8-8.1); Sodium 137 mmol/L (136-145)
[2024-03-12 07:54] VITALS: TEMP 97.1
[2024-03-12] MEDS: Gabapentin 300 MG CAP PO SCH (08:40)
[2024-03-12 08:46] VITALS: BP 146/63
== END 2024-03-12 11:15 | disposition home or self-care (01) ==
LOC: SUATTDRO 19:38 → ERS 19:38 → SURG A 22:19
PROVIDERS: ADMIT Family Medicine; ATTEND Internal Medicine
DX: T84.53XA Infection and inflammatory reaction due to internal right knee prosthesis, initial encounter (principal); L03.115 Cellulitis of right lower limb; I10 Essential (primary) hypertension; E11.9 Type 2 diabetes mellitus without complications; J45.909 Unspecified asthma, uncomplicated; N17.9 Acute kidney failure, unspecified; Z90.710 Acquired absence of both cervix and uterus; Z96.651 Presence of right artificial knee joint; Z88.5 Allergy status to narcotic agent; Z88.4 Allergy status to anesthetic agent; Z88.8 Allergy status to other drugs, medicaments and biological substances; Z88.1 Allergy status to other antibiotic agents; Z79.4 Long term (current) use of insulin; Z79.84 Long term (current) use of oral hypoglycemic drugs; Z79.1 Long term (current) use of non-steroidal anti-inflammatories (NSAID); Z79.899 Other long term (current) drug therapy; Y83.1 Surgical operation with implant of artificial internal device as the cause of abnormal reaction of the patient, or of later complication, without mention of misadventure at the time of the procedure
CPT/HCPCS: 73564; 73722; 80048; 80053 ×2; 82962 ×2; 83605; 83735; 85025 ×3; 87070; 87077; 87186; 87205; 96374; 97139 ×2; 99284; J1650 ×2; J3490 ×3; 36415; 36416; 96365; 96372; 96376; G0378; J1815